=== PATIENT | female | born 1985 | race Caucasian/White ===

== ENCOUNTER 2021-05-22 17:51 | Emergency (ER) | payer OTHER ==
[~2021-05-22] VITALS: Ht 157.5 cm; Wt 99.8 kg
[2021-05-22] MEDS ORDERED: OMEPRAZOLE (19:06)
== END 2021-05-23 09:00 | disposition home or self-care (01) ==
LOC: ER 17:51
DX: K80.50 Calculus of bile duct without cholangitis or cholecystitis without obstruction (principal)

== ENCOUNTER 2021-06-27 05:43 | Day surgery (SDC) | payer OTHER ==
[~2021-06-27 05:43] MED LIST: OMEPRAZOLE
== END 2021-06-27 12:35 | disposition home or self-care (01) ==
LOC: CIR.AMB 05:43
PROVIDERS: ATTEND Surgery
DX: K80.10 Calculus of gallbladder with chronic cholecystitis without obstruction (principal); Z20.822 Contact with and (suspected) exposure to COVID-19

== ENCOUNTER 2023-10-31 05:36 | Inpatient (IN) | payer OTHER ==
[2023-10-31 16:59] LABS: CREATININE SERUM 0.84 mg/dL (0.55-1.02); GFR 75.88; MAGNESIUM 2.1 mg/dL (1.8-2.4); PHOSPHOROUS 2.8 mg/dL (2.5-4.9); POTASSIUM 4.13 mEq/L (3.5-5.1)
== END 2023-11-01 15:02 | disposition home or self-care (01) | DRG 310 ==
LOC: AMB-ENDOS 05:36 → MEDJ 13:23 → O/R 13:23 → MEDJ 14:16
PROVIDERS: ADMIT Internal Medicine; ATTEND Internal Medicine
PROC: B246ZZZ Ultrasonography of Right and Left Heart (ICD-10-PCS; principal; 2023-10-31)
PROC: 4A12X4Z Monitoring of Cardiac Electrical Activity, External Approach (ICD-10-PCS; 2023-10-31)
DX: I47.10 Supraventricular tachycardia, unspecified (principal); Z20.822 Contact with and (suspected) exposure to COVID-19